=== PATIENT | female | born 1990 | race Caucasian/White ===

== ENCOUNTER 2016-06-17 19:22 | Emergency (ER) | payer OTHER ==
[2016-06-17 19:34] VITALS: RESP 18
--- NOTE | 2016-06-17 20:18 | ED ---
Abdominal Pain HPI - General Source: patient, RN notes reviewed Mode of arrival: ambulatory Limitations: no limitations <Luisa Granado - Last Filed: 06/17/16 20:24> <Gianluca Story - Last Filed: 06/17/16 21:48> - General Chief Complaint: Abdominal Pain Stated Complaint: 5 weeks pg/Abd Pain Time Seen by Provider: 06/17/16 19:35 - History of Present Illness Initial Comments: Patient is a 26-year-old female presents to the emergency room for evaluation of left lower quadrant pain. Patient states her last menstrual period was May 04. Patient states she took a urine test a few days ago and was positive. Patient states she thinks she is about 5 weeks . Patient denies following up with CLOSET BUILDER yet. Patient states she does not have an appointment with Dr. Jones until end of this month. Patient is a . 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 Patient states because of the left lower quadrant pain she wants to rule out ectopic . Patient states the pain began yesterday. Patient denies vaginal bleeding. Patient denies any abnormal vaginal discharge or discomfort. Patient denies any pain or burning during urination, trouble urinating or blood in urine. Patient denies history of STDs. Patient states she's been nauseous on and off for the past few weeks. Patient denies any current nausea. Patient denies fevers or chills. Patient denies chest pain or shortness of breath. Patient denies headache or dizziness. (Luisa Granado) - Related Data Home Medications Medication Instructions Recorded Confirmed Pnv with Ca,No.72/Iron/FA 1 tab PO DAILY 06/17/16 06/17/16 [ Plus Tablet] Allergies Allergy/AdvReac Type Severity Reaction Status Date / Time No Known Allergies Allergy Verified 06/17/16 20:13 Review of Systems ROS Other: All systems not noted in ROS Statement are negative. <Luisa Granado - Last Filed: 06/17/16 20:24> ROS Other: All systems not noted in ROS Statement are negative. <Gianluca Story - Last Filed: 06/17/16 21:48> ROS Statement: Those systems with pertinent positive or pertinent negative responses have been documented in the HPI. Past Medical History Past Medical History: No Reported History History of Any Multi-Drug Resistant Organisms: None Reported Past Surgical History: Section, Ear Surgery Additional Past Surgical History / Comment(s): D&C Past Psychological History: No Psychological Hx Reported Smoking Status: Former smoker Past Alcohol Use History: Rare Past Drug Use History: None Reported <Luisa Granado - Last Filed: 06/17/16 20:24> General Exam Limitations: no limitations General appearance: alert, in no apparent distress Head exam: Present: atraumatic, normocephalic, normal inspection Eye exam: Present: normal appearance ENT exam: Present: normal exam Neck exam: Present: normal inspection Respiratory exam: Present: normal lung sounds bilaterally. Absent: respiratory distress Cardiovascular Exam: Present: regular rate, normal rhythm, normal heart sounds GI/Abdominal exam: Present: soft, tenderness (Left lower quadrant), normal bowel sounds. Absent: distended, guarding, rebound, rigid External exam: Present: normal external exam Speculum exam: Present: normal speculum exam By manual exam: Present: adnexal tenderness (left) Extremities exam: Present: normal inspection Back exam: Present: normal inspection Neurological exam: Present: alert, oriented X3, CN II-XII intact, normal gait Psychiatric exam: Present: normal affect, normal mood Skin exam: Present: warm, dry, intact, normal color. Absent: rash <Luisa Granado - Last Filed: 06/17/16 20:24> <Gianluca Story - Last Filed: 06/17/16 21:48> - General Exam Comments Initial Comments: Sitting in exam room in no acute distress. (Luisa Granado) Medical Decision Making <Luisa Granado - Last Filed: 06/17/16 20:24> <Gianluca Story - Last Filed: 06/17/16 21:48> - Medical Decision Making Patient is a 26-year-old female presents to the emergency room for evaluation of left lower quadrant pain. Patient is . Patient is here to rule out ectopic since she has a past history. Case discussed and passed on to Dr. Story at 8:25 PM. (Luisa Granado) Labs revealed a beta hCG of 1389 and the pelvic ultrasound was as follows: Tiny cystic structure along the fundal endometrium may represent a very early gestational sac. As no urine sac or pole is seen at this time, differential considerations include early IUP, failed , and nonvisualized ectopic . Correlate with serial beta hCG and ultrasound follow-up to ensure the appearance of a normal IUP. Patient was reevaluated and had improvement in her pain. Patient was informed of these results and that she would be discharged with instructions to follow- up with her CLOSET BUILDER for serial beta hCGs and a repeat ultrasound at their discretion. She is further advised to return to this facility if her symptoms should worsen or persist including but not limited to: Vaginal bleeding, intractable nausea and vomiting, dysuria, fever/chills, intractable abdominal pain, chest pain, shortness of breath. The patient acknowledged an understanding of this information and agreed with this plan of care. She was offered to vitamins but stated she had already obtained them on her own. (Gianluca Story) - Lab Data Lab Results 06/17/16 06/17/16 06/17/16 Range/Units 19:50 19:50 20:00 HCG, Quant mIU/mL Urine Color Light Yellow Urine Appearance Clear (Clear) Urine pH 5.5 (5.0-8.0) Ur Specific [place] 1.014 (1.001-1.035) Urine Protein Negative (Negative) Urine Glucose (UA) Negative (Negative) Urine Ketones Negative (Negative) Urine Blood Negative (Negative) Urine Nitrate Negative (Negative) Urine Bilirubin Negative (Negative) Urine Urobilinogen <2.0 (<2.0) mg/dL Ur Leukocyte Esterase Negative (Negative) Urine HCG, Qual Detected (Not Detectd) Trichomonas Ag (Rapid) (Negative) Blood Type A Positive Blood Type Recheck No 06/17/16 06/17/16 Range/Units 20:00 20:00 HCG, Quant 1389.6 mIU/mL Urine Color Urine Appearance (Clear) Urine pH (5.0-8.0) Ur Specific [place] (1.001-1.035) Urine Protein (Negative) Urine Glucose (UA) (Negative) Urine Ketones (Negative) Urine Blood (Negative) Urine Nitrate (Negative) Urine Bilirubin (Negative) Urine Urobilinogen (<2.0) mg/dL Ur Leukocyte Esterase (Negative) Urine HCG, Qual (Not Detectd) Trichomonas Ag (Rapid) Negative (Negative) Blood Type Blood Type Recheck Disposition <Luisa Granado - Last Filed: 06/17/16 20:24> Time of Disposition: 21:48 <Gianluca Story - Last Filed: 06/17/16 21:48> Clinical Impression: at early stage, Abdominal pain Disposition: HOME SELF-CARE Condition: Stable Instructions: Abdominal Pain in (ED)
[2016-06-17 20:21] LABS: Appearance,Urine Clear (Clear); Bilirubin,Urine Negative (Negative); Glucose,Urine (UA) Negative (Negative); Ketones,Urine Negative (Negative); Leukocyte Esterase,Urine Negative (Negative); Nitrite,Urine Negative (Negative); PH, Urine 5.5 (5.0-8.0); Protein,Urine Negative (Negative); Specific Gravity,Urine 1.014 (1.001-1.035); UA Billing (MACRO vs. MICRO) CHEM; Urobilinogen,Urine <2.0 mg/dL (<2.0)
--- NOTE | 2016-06-17 21:18 | US ---
EXAMINATION TYPE: US OB <=14 wks transvag DATE OF EXAM: 06/17/2016 8:58 PM COMPARISON: NONE CLINICAL HISTORY: 26-year-old female with LLQ pain, patient states history of previous ectopic left side Date of LMP: 05/11/2016 Beta HcG (if available): Not available EXAM PERFORMED: Transvaginal (TV) and Transabdominal (TA) FINDINGS: EXAM MEASUREMENTS: GESTATIONAL AGE / DATING Physician Established: Not yet established Dates by LMP: (5 weeks/2 days) EDC: 02/15/2017 Dates by First Scan: No prior Dates by Current Scan: Too early to calculate MATERNAL ANATOMY Uterus: Retroverted measuring 8.8 x 5.1 x 5.5 cm Right Ovary: 3.8 x 2.2 x 2.6 cm Left Ovary: 2.1 x 1.1 x 2.2 cm Post CDS / Adnexa: wnl Presence of free fluid: No Presence of corpus luteal cyst: Right Ovary= 2.4 x 1.8 x 2.1 cm Presence of subchorionic bleed: No GESTATION / SURVEY Tiny 4 mm cystic collection along the fundal endometrium. If this represents an early gestational sac , it is too early to calculate age. No yolk sac seen. IMPRESSION: Tiny cystic structure along the fundal endometrium may represent a very early gestational sac. As no yolk sac or pole is seen at this time, differential considerations include early intrauterine p regnancy, failed , and nonvisualized ectopic . Correlate with serial beta hCG and u ltrasound follow-up to ensure the appearance of a normal intrauterine .
[2016-06-17 21:57] VITALS: BP 112/61; PULSE 82; TEMP 98.5
== END 2016-06-17 21:56 | disposition home or self-care (01) ==
LOC: EC 19:22
DX: O26.891 Other specified pregnancy related conditions, first trimester (principal); R10.32 Left lower quadrant pain; Z3A.00 Weeks of gestation of pregnancy not specified; Z87.891 Personal history of nicotine dependence
CPT/HCPCS: 36415; 76801; 76817; 81003; 81025; 84702; 86900; 86901; 87070; 87205; 87491; 87591; 87808; 99284

== ENCOUNTER → 2016-06-19 | Outpatient (CLI) | payer OTHER | END | disposition home or self-care (01) | LOC: LABWHC1 16:11 | PROVIDERS: ATTEND Obstetrics & Gynecology | DX: Z34.80 Encounter for supervision of other normal pregnancy, unspecified trimester (principal); Z3A.00 Weeks of gestation of pregnancy not specified | CPT/HCPCS: 36415; 84702 ==

== ENCOUNTER → 2016-07-14 | Outpatient (CLI) | payer OTHER ==
[2016-07-14 15:50] LABS: CH 33.8; CHCM 34.8; HCT 35.1 % (34.0-46.0); HDW 2.82; HGB 12.1 gm/dL (11.4-16.0); MCH 33.6 pg (25.0-35.0); MCHC 34.4 g/dL (31.0-37.0); MCV 97.4 fL (80.0-100.0); Mean Platelet Volume 6.6; RDW 13.4 % (11.5-15.5); WBC 6.4 k/uL (3.8-10.6)
[2016-07-14 16:04] LABS: Glucose 99 mg/dL (74-99); Non-African American GFR(MDRD) >60 (>60 ml/min/1.73 sqM)
[2016-07-14 16:34] LABS: Hepatitis B Surface Ag Index 0.06
[2016-07-15 05:24] LABS: Toxoplasma Antibody (IgG) 54.9 IU/mL (<7.2)
[2016-07-15 08:08] LABS: HIV-1/HIV-2 Ab Screen NONREAC (NON REAC)
--- NOTE | 2016-07-15 09:24 | US ---
EXAMINATION TYPE: US OB <= 14 wk fetus DATE OF EXAM: 07/14/2016 4:03 PM COMPARISON: NONE CLINICAL HISTORY: [id number] Confirm Dates. EXAM PERFORMED: Transvaginal (TV) and Transabdominal (TA) EXAM MEASUREMENTS: GESTATIONAL AGE / DATING Physician Established: not yet established Dates by LMP: ( 9 weeks/1 days) EDC: 02/15/2017 Dates by First Scan: not dated Today's scan: not dated by today's scan MATERNAL ANATOMY Uterus: 9.3 x 6.4 x 6.4 Right Ovary: 2.7 x 1.9 x 2.1cm Left Ovary: not visualized Post CDS / Adnexa: wnl Presence of free fluid: small amount of ff anterior to uterus Presence of corpus luteal cyst: 1.5 x 1.0 x 1.0cm Presence of subchorionic bleed: multiple small anechoic area, largest measuring 0.8 x 0.2 x 0.9cm GESTATION / SURVEY CRL: not seen MSD: 1.9 (7 weeks/0 days) Yolk Sac (normal less than 6mm): not seen Date of LMP: 05/11/17 Beta HcG (if available): not available TECHNOLOGIST IMPRESSION: Possible blighted ovum but can rule out early . Office called spoke with Maryam gave her a preliminary, patient instructed to call office on Sunday. Liver appears to be an intrauterine gestational sac. However, this is irregular and no yolk sac is id entified. No pole is evident. There are several hypoechoic areas adjacent to the gestational sa c could represent small subchorionic hemorrhages. No yolk sac no pole and no cardiac activity are evident. This could not be measured for gestati onal age. IMPRESSION: 1. An intrauterine gestation is not identified. Blighted ovum an ectopic should be consider ed. Early gestational age is not excluded correlation with beta-hCG and follow-up can also be perform ed.
== END | disposition home or self-care (01) ==
LOC: RADUSWWP 15:15
PROVIDERS: ATTEND Obstetrics & Gynecology
DX: Z36 Encounter for antenatal screening of mother (principal); O26.811 Pregnancy related exhaustion and fatigue, first trimester
CPT/HCPCS: 36415; 76801; 76817; 82565; 82947; 85027; 86762; 86777; 86778; 86780; 86850; 86900; 86901; 87340; 87389

== ENCOUNTER → 2016-07-17 | Outpatient (CLI) | payer OTHER | END | disposition home or self-care (01) | LOC: LABWHC1 10:32 | PROVIDERS: ATTEND Obstetrics & Gynecology | DX: Z34.80 Encounter for supervision of other normal pregnancy, unspecified trimester (principal); Z3A.00 Weeks of gestation of pregnancy not specified | CPT/HCPCS: 36415; 84702 ==

== ENCOUNTER 2016-07-18 05:58 | Day surgery (SDC) | payer OTHER ==
[2016-07-17 14:52] VITALS: BMI 29.2
--- NOTE | 2016-07-17 16:34 | P.HPOB ---
History of Present Illness H&P Date: 07/17/16 Chief Complaint: Missed . This patient is a pleasant 26 yr G4PP1 who presents for suction D&C due to missed at approximately 6 weeks size. Patient has had serial ultrasounds showing an empty uterine sac and BHCG 54,000. She began spotting the end of last week. I discussed expectant management vs. D&C and patient is requesting D&C for treatment. Review of Systems Constitutional: Denies chills, Denies fever Ears, nose, mouth and throat: Denies headache, Denies sore throat Cardiovascular: Denies chest pain, Denies shortness of breath Respiratory: Denies cough Gastrointestinal: Denies abdominal pain, Denies diarrhea, Denies nausea, Denies vomiting Genitourinary: Reports as per HPI Menstruation: Reports as per HPI Musculoskeletal: Denies myalgias Integumentary: Denies pruritus, Denies rash Neurological: Denies numbness, Denies weakness Psychiatric: Denies anxiety, Denies depression Endocrine: Denies fatigue, Denies weight change Past Medical History Past Medical History: No Reported History Additional Past Medical History / Comment(s): CURRENTLY HAVING SOME CRAMPING, NO SPOTTING CURRENTLY, BUT DID HAVE SOME A WEEK AGO History of Any Multi-Drug Resistant Organisms: None Reported Past Surgical History: Section, Ear Surgery Additional Past Surgical History / Comment(s): D&C X2 Past Anesthesia/Blood Transfusion Reactions: No Reported Reaction Past Psychological History: No Psychological Hx Reported Smoking Status: Former smoker Past Alcohol Use History: None Reported Additional Past Alcohol Use History / Comment(s): QUIT A FEW MONTHS AGO, SMOKED COUPLE CIGARETTES OCCASIONALLY FROM AGE 13 Past Drug Use History: None Reported - Past Family History Mother Family Medical History: No Reported History Medications and Allergies Home Medications Medication Instructions Recorded Confirmed Type No Known Home Medications [No 07/17/16 07/17/16 History Known Home Medications] Allergies Allergy/AdvReac Type Severity Reaction Status Date / Time No Known Allergies Allergy Verified 07/17/16 14:49 Exam - Vital Signs Vital signs: Intake and Output 07/17/16 07/17/16 07/17/16 06:59 14:59 22:59 Other: Weight 77.111 kg Patient Weight 07/18/16 06:59 Weight 77.111 kg - OBG Physical Exam Abdomen: bowel sounds normal, no diffuse tenderness, no bruit present, no guarding noted, no hepatomegaly, no splenomegaly, no mass Vulva: both: normal Vagina: normal moisture, no discharge Cervix: no lesion, no discharge Uterus: enlarged Results Ultrasound shows a 1.9 cm intrauterine sac without pole/yolk sac. Small sub-chorionic hemorrhages are seen. [facility] [id number]. Assessment and Plan (1) Missed Narrative/Plan: This is a pleasant 26yr female ~5-6 weeks estimated gestational age with missed who requests a D&C for treatment. Plan is suction D&C. I have discussed the risks of the this procedure: infection, bleeding, possible uterine perforation. All of the patients questions were answered and a written consent obtained. Status: Chronic
[~2016-07-18 05:58] MED LIST: DEXAMETHASONE SOD PHOSPHATE 10 MG/ML 1 ML VIAL IV ONE; HYDROmorphone 1 MG/ML 1 ML SYRINGE IVP PRN; LACTATED RINGERS 1,000 ML IV SCH; MIDAZOLAM 2 MG/2 ML VIAL IV PRN; ONDANSETRON 4 MG/2 ML VIAL IVP ONE; Pre Op ABX Message 1 EACH MISC MISCELLANE ONE; SCOPOLAMINE 1.5MG/72HR PATCH TRANSDERM ONE
[2016-07-18 06:15] VITALS: RESP 16
[2016-07-18] MEDS ORDERED: LIDOCAINE 1% 20 ML VIAL (10MG/ML) FOR IV START INTRADERMA ONE (06:21)
[2016-07-18] MEDS ORDERED: fentaNYL (PF) 50 MCG/ML 2 ML AMP ONE (06:53)
[2016-07-18] MEDS ORDERED: MIDAZOLAM 2 MG/2 ML VIAL ONE (06:53)
[2016-07-18] MEDS ORDERED: KETOROLAC 30 MG/ML 1 ML VIAL ONE (06:53)
[2016-07-18] MEDS ORDERED: LIDOCAINE 1% INJ 10MG/ML (20 ML MDV) ONE (06:53)
[2016-07-18] MEDS ORDERED: PROPOFOL 10 MG/ML 20 ML VIAL IV ONE (06:53)
--- NOTE | 2016-07-18 07:17 | P.OP ---
Date of Procedure: 07/18/16 Preoperative Diagnosis: Missed 6 weeks Postoperative Diagnosis: Same Procedure(s) Performed: Suction D&C Anesthesia: MAC Surgeon: David Quintanilla Estimated Blood Loss (ml): 100 Urine output (ml): 10 Pathology: other (Uterine contents) Condition: stable Disposition: PACU Indications for Procedure: Please see dictated H&P for intimate details of this patient's admission. Brief summary is a pleasant 26-year-old multigravida patient who is approximately 6 weeks' gestation with a missed . Patient was counseled as to options as far as expectant management versus a D&C. Patient is requesting D&C at this time. Patient understands this surgery and risks including risks of infection, bleeding, possible uterine perforation. All the patient's questions are answered written consent is obtained. Operative Findings: Uterine contents were consistent with degenerated products of conception. Description of Procedure: This patient is taken to the operating room where she is laid in the supine position. She subsequently undergoes general mask anesthesia without incident. An adequate level of anesthesia she's placed in dorsal lithotomy position. She has a vaginal perineal prep and drape. Examination under anesthesia shows a mid to anteverted uterus approximately 6-7 weeks size. I placed a weighted speculum posterior vagina. Bladder is drained for about 10 mL of clear urine. I then place an Allis clamp and the anterior lip of the cervix. Cervix is gently dilated to allow a 9 curved suction curette easily and uterine cavity suction is applied and generous amount of tissue is removed. Multiple passes are done until no further tissue was noted. A gentle but thorough curettage of all 4 quadrants is done again no further tissue was noted. A final pass of the suction curet is done. At this time the bleeding subsides. Procedure is terminated. Allis clamps removed weighted speculum removed. All counts are correct 3. There are no complications. Patient is awakened from anesthesia and taken to the recovery room in satisfactory condition.
[2016-07-18 07:27] VITALS: TEMP 98
[2016-07-18] MEDS ORDERED: LACTATED RINGERS 1,000 ML IV ONE (08:46)
[2016-07-18 09:08] VITALS: BP 108/66; PULSE 78
== END 2016-07-18 09:42 | disposition home or self-care (01) ==
LOC: OR 05:58
PROVIDERS: ATTEND Obstetrics & Gynecology
DX: O02.1 Missed abortion (principal); Z87.891 Personal history of nicotine dependence; Z3A.01 Less than 8 weeks gestation of pregnancy
CPT/HCPCS: 59820; J2250; J1100; J2405; J2001; J3010; J1885; J2704; 88305

== ENCOUNTER → 2016-08-17 | Outpatient (CLI) | payer OTHER | END | disposition home or self-care (01) | LOC: LABWHC1 15:00 | PROVIDERS: ATTEND Obstetrics & Gynecology | DX: O02.0 Blighted ovum and nonhydatidiform mole (principal) | CPT/HCPCS: 36415; 84702 ==

== ENCOUNTER → 2016-09-28 | Outpatient (CLI) | payer OTHER | END | disposition home or self-care (01) | LOC: LABWHC1 14:14 | PROVIDERS: ATTEND Obstetrics & Gynecology | DX: O02.0 Blighted ovum and nonhydatidiform mole (principal) | CPT/HCPCS: 36415; 84702 ==

== ENCOUNTER → 2016-11-17 | Outpatient (CLI) | payer OTHER | END | disposition home or self-care (01) | LOC: LABWHC1 09:45 | PROVIDERS: ATTEND Obstetrics & Gynecology | DX: O02.0 Blighted ovum and nonhydatidiform mole (principal) | CPT/HCPCS: 36415; 84702 ==

== ENCOUNTER → 2017-03-26 | Outpatient (CLI) | payer OTHER | END | disposition home or self-care (01) | LOC: LABWHC1 10:27 | PROVIDERS: ATTEND Obstetrics & Gynecology | DX: O02.0 Blighted ovum and nonhydatidiform mole (principal) | CPT/HCPCS: 36415; 84702 ==

== ENCOUNTER → 2017-08-22 | Outpatient (CLI) | payer OTHER | END | disposition home or self-care (01) | LOC: LABWHC1 10:38 | PROVIDERS: ATTEND Obstetrics & Gynecology | DX: Z34.80 Encounter for supervision of other normal pregnancy, unspecified trimester (principal); Z3A.00 Weeks of gestation of pregnancy not specified | CPT/HCPCS: 36415; 84702 ==

== ENCOUNTER 2017-08-29 20:55 | Emergency (ER) | payer OTHER ==
[2017-08-29] MEDS ORDERED: SODIUM CHLORIDE 0.9% 1,000 ML IV STA (21:22)
[2017-08-29 21:48] LABS: Basophils % (A) 0 %; Eosinophils # (A) 0.1 k/uL (0-0.7); Eosinophils % (A) 2 %; HCT 35.7 % (34.0-46.0); HGB 12.4 gm/dL (11.4-16.0); Lymphocytes # (A) 3.2 k/uL (1.0-4.8); Lymphocytes % (A) 42 %; MCH 31.9 pg (25.0-35.0); MCHC 34.6 g/dL (31.0-37.0); MCV 92.4 fL (80.0-100.0); Monocytes # (A) 0.4 k/uL (0-1.0); Monocytes % (A) 5 %; Neutrophils # (A) 3.8 k/uL (1.3-7.7); Neutrophils % (A) 50 %; Platelet Count 205 k/uL (150-450); RBC 3.87 m/uL (3.80-5.40); RDW 12.5 % (11.5-15.5); WBC 7.6 k/uL (3.8-10.6)
[2017-08-29 22:02] LABS: ALT 26 U/L (9-52); AST 16 U/L (14-36); Albumin 4.1 g/dL (3.5-5.0); Alkaline Phosphatase 68 U/L (38-126); Anion Gap 12 mmol/L; Blood Urea Nitrogen 19 mg/dL (7-17); Calcium 9.3 mg/dL (8.4-10.2); Carbon Dioxide 25 mmol/L (22-30); Chloride 105 mmol/L (98-107); Glucose 85 mg/dL (74-99); Potassium 4.1 mmol/L (3.5-5.1); Sodium 142 mmol/L (137-145); Total Bilirubin 0.2 mg/dL (0.2-1.3); Total Protein 6.8 g/dL (6.3-8.2)
--- NOTE | 2017-08-29 22:14 | ED ---
Abdominal Pain HPI - General Chief Complaint: Abdominal Pain Stated Complaint: rt side pain/miscarriage 08/21/17 Time Seen by Provider: 08/29/17 21:08 Source: patient Mode of arrival: ambulatory Limitations: no limitations - History of Present Illness Initial Comments: 27-year-old female patient presents to the emergency department today with complaints of right lower quadrant abdominal pain. Patient states that she started to have vaginal bleeding approximately one week ago. Patient is a . The patient states that she is approximately 5 weeks along when she started to have the vaginal bleeding. Patient states that she has had numerous miscarriages, one ectopic , and a molar in her past. Patient states that this seems like she was having a miscarriage. She states that she did have hCG level drawn by her appeals court associate justice. States it was very low and a confirmed her diagnosis of probable miscarriage. Patient states that she has been having persistent right lower quadrant abdominal pain since the bleeding began. Patient states that her pain ranges between a 4 and 6. States it is a sharp pain and does radiate into her back. She states that the vaginal bleeding did lessen yesterday. Denies any vaginal bleeding today. She denies any hematuria, dysuria, urinary frequency, urinary urgency. Denies any nausea, vomiting, or diarrhea. Denies any fevers or chills with this.Patient denies any recent rash, shortness breath, chest pain, back pain, numbness, tingling, dizziness, weakness, hematuria, dysuria, urinary urgency, urinary frequency, headache, visual changes, or any other complaints. - Related Data Home Medications Medication Instructions Recorded Confirmed No Known Home Medications [No 08/29/17 08/29/17 Known Home Medications] Allergies Allergy/AdvReac Type Severity Reaction Status Date / Time No Known Allergies Allergy Verified 08/29/17 21:25 Review of Systems ROS Statement: Those systems with pertinent positive or pertinent negative responses have been documented in the HPI. ROS Other: All systems not noted in ROS Statement are negative. Past Medical History Past Medical History: No Reported History Additional Past Medical History / Comment(s): CURRENTLY HAVING SOME CRAMPING, NO SPOTTING CURRENTLY, BUT DID HAVE SOME A WEEK AGO History of Any Multi-Drug Resistant Organisms: None Reported Past Surgical History: Section, Ear Surgery Additional Past Surgical History / Comment(s): D&C X2 Past Anesthesia/Blood Transfusion Reactions: No Reported Reaction Past Psychological History: No Psychological Hx Reported Smoking Status: Current every day smoker Past Alcohol Use History: None Reported Past Drug Use History: None Reported - Past Family History Mother Family Medical History: No Reported History General Exam Limitations: no limitations General appearance: alert, in no apparent distress, other (This is a well- developed, well-nourished adult female patient in no acute distress. Vital signs upon presentation are temperature 98.2F, pulse 90, respirations 16, blood pressure 118/69, pulse ox 100% on room air.) Eye exam: Present: normal appearance, PERRL, EOMI. Absent: scleral icterus, conjunctival injection, periorbital swelling ENT exam: Present: normal exam, normal oropharynx, mucous membranes moist Respiratory exam: Present: normal lung sounds bilaterally. Absent: respiratory distress, wheezes, rales, rhonchi, stridor Cardiovascular Exam: Present: regular rate, normal rhythm, normal heart sounds. Absent: systolic murmur, diastolic murmur, rubs, gallop, clicks GI/Abdominal exam: Present: soft, tenderness (Suprapubic abdominal tenderness), normal bowel sounds. Absent: distended, guarding, rebound, rigid Neurological exam: Present: alert, oriented X3, CN II-XII intact Psychiatric exam: Present: normal affect, normal mood Skin exam: Present: warm, dry, intact, normal color. Absent: rash Course Vital Signs 08/29/17 08/29/17 20:58 23:21 Temperature 98.2 F 98.6 F Pulse Rate 90 80 Respiratory 16 18 Rate Blood Pressure 118/69 123/60 O2 Sat by Pulse 100 98 Oximetry Medical Decision Making - Medical Decision Making 27-year-old female patient presented to the emergency department today for complaints of persistent right lower quadrant abdominal pain after experiencing a miscarriage approximately one week ago. Physical examination is unremarkable. Patient does exhibit some mild suprapubic tenderness. Labs reviewed and did reveal a negative hCG level. Urinalysis was negative for any acute infection. Transvaginal ultrasound was obtained and showed no evidence of ectopic , ovarian torsion, or retained products. I did discuss findings with the patient. We discussed use of ibuprofen for her pain. She is instructed to follow-up with PERFORMANCE TEST ENGINEER as soon as possible. She is instructed to return here immediately for any new, worsening, or concerning symptoms. She verbalizes understanding and agrees with this plan. - Lab Data Result diagrams: 08/29/17 21:34 08/29/17 21:34 Lab Results 08/29/17 08/29/17 08/29/17 Range/Units 21:34 21:34 21:34 WBC 7.6 (3.8-10.6) k/uL RBC 3.87 (3.80-5.40) m/uL Hgb 12.4 (11.4-16.0) gm/dL Hct 35.7 (34.0-46.0) % MCV 92.4 (80.0-100.0) fL MCH 31.9 (25.0-35.0) pg MCHC 34.6 (31.0-37.0) g/dL RDW 12.5 (11.5-15.5) % Plt Count 205 (150-450) k/uL Neutrophils % 50 % Lymphocytes % 42 % Monocytes % 5 % Eosinophils % 2 % Basophils % 0 % Neutrophils # 3.8 (1.3-7.7) k/uL Lymphocytes # 3.2 (1.0-4.8) k/uL Monocytes # 0.4 (0-1.0) k/uL Eosinophils # 0.1 (0-0.7) k/uL Basophils # 0.0 (0-0.2) k/uL Sodium 142 (137-145) mmol/L Potassium 4.1 (3.5-5.1) mmol/L Chloride 105 (98-107) mmol/L Carbon Dioxide 25 (22-30) mmol/L Anion Gap 12 mmol/L BUN 19 H (7-17) mg/dL Creatinine 0.88 (0.52-1.04) mg/dL Est GFR (CKD-EPI)AfAm >90 (>60 ml/min/1.73 sqM) Est GFR (CKD-EPI)NonAf 90 (>60 ml/min/1.73 sqM) Glucose 85 (74-99) mg/dL Calcium 9.3 (8.4-10.2) mg/dL Total Bilirubin 0.2 (0.2-1.3) mg/dL AST 16 (14-36) U/L ALT 26 (9-52) U/L Alkaline Phosphatase 68 (38-126) U/L Total Protein 6.8 (6.3-8.2) g/dL Albumin 4.1 (3.5-5.0) g/dL HCG, Quant <2.4 mIU/mL Urine Color Urine Appearance (Clear) Urine pH (5.0-8.0) Ur Specific [place] (1.001-1.035) Urine Protein (Negative) Urine Glucose (UA) (Negative) Urine Ketones (Negative) Urine Blood (Negative) Urine Nitrite (Negative) Urine Bilirubin (Negative) Urine Urobilinogen (<2.0) mg/dL Ur Leukocyte Esterase (Negative) Blood Type A Positive Blood Type Recheck No 08/29/17 Range/Units 22:56 WBC (3.8-10.6) k/uL RBC (3.80-5.40) m/uL Hgb (11.4-16.0) gm/dL Hct (34.0-46.0) % MCV (80.0-100.0) fL MCH (25.0-35.0) pg MCHC (31.0-37.0) g/dL RDW (11.5-15.5) % Plt Count (150-450) k/uL Neutrophils % % Lymphocytes % % Monocytes % % Eosinophils % % Basophils % % Neutrophils # (1.3-7.7) k/uL Lymphocytes # (1.0-4.8) k/uL Monocytes # (0-1.0) k/uL Eosinophils # (0-0.7) k/uL Basophils # (0-0.2) k/uL Sodium (137-145) mmol/L Potassium (3.5-5.1) mmol/L Chloride (98-107) mmol/L Carbon Dioxide (22-30) mmol/L Anion Gap mmol/L BUN (7-17) mg/dL Creatinine (0.52-1.04) mg/dL Est GFR (CKD-EPI)AfAm (>60 ml/min/1.73 sqM) Est GFR (CKD-EPI)NonAf (>60 ml/min/1.73 sqM) Glucose (74-99) mg/dL Calcium (8.4-10.2) mg/dL Total Bilirubin (0.2-1.3) mg/dL AST (14-36) U/L ALT (9-52) U/L Alkaline Phosphatase (38-126) U/L Total Protein (6.3-8.2) g/dL Albumin (3.5-5.0) g/dL HCG, Quant mIU/mL Urine Color Colorless Urine Appearance Clear (Clear) Urine pH 6.0 (5.0-8.0) Ur Specific [place] 1.006 (1.001-1.035) Urine Protein Negative (Negative) Urine Glucose (UA) Negative (Negative) Urine Ketones Negative (Negative) Urine Blood Negative (Negative) Urine Nitrite Negative (Negative) Urine Bilirubin Negative (Negative) Urine Urobilinogen <2.0 (<2.0) mg/dL Ur Leukocyte Esterase Negative (Negative) Blood Type Blood Type Recheck - Radiology Data Radiology results: report reviewed, image reviewed Transvaginal ultrasound of the pelvis was obtained. Report was reviewed in its entirety. Impression by Dr. Spivey shows no evidence of ovarian torsion. Normal uterus and endometrium. No evidence of retained products. Disposition Clinical Impression: Miscarriage, Pelvic pain Disposition: HOME SELF-CARE Condition: Good Instructions: Miscarriage (ED), Pelvic Pain (ED) Additional Instructions: Follow-up with PERFORMANCE TEST ENGINEER as soon as possible. Continue taking ibuprofen for pain control. Return here immediately for any new, worsening, or concerning symptoms. Referrals: None,Stated [Primary Care Provider] - 1-2 days Time of Disposition: 23:15
[2017-08-29 22:17] LABS: HCG,Quantitative Serum <2.4 mIU/mL
--- NOTE | 2017-08-29 22:37 | US ---
EXAMINATION TYPE: US transvaginal DATE OF EXAM: 08/29/2017 COMPARISON: NONE CLINICAL HISTORY: Pain. Right side pain miscarriage 08/21/2017 TECHNIQUE: Transvaginal (TV). EXAM MEASUREMENTS: Uterus: 7.3 x 4.6 x 5.3 cm Endometrial Stripe: 0.4m Right Ovary: 3.0 x 1.7 x 1.7 cm Left Ovary: 3.8 x 1.4 x 1.5 cm 1. Uterus: Retroverted wnl 2. Endometrium: wnl 3. Right Ovary: Follicles visualized. 4. Left Ovary: Follicles visualized. Spectral, color and waveform doppler imaging shows good arterial and venous flow within the ovaries ; there is no evidence for ovarian torsion. 5. Bilateral Adnexa: wnl 6. Posterior cul-de-sac: wnl Bilateral good color doppler within the ovaries. IMPRESSION: No evidence of ovarian torsion. Normal uterus and endometrium. No evidence of retained pr oducts.
[2017-08-29 23:05] LABS: Appearance,Urine Clear (Clear); Bilirubin,Urine Negative (Negative); Blood,Urine Negative (Negative); Color,Urine Colorless; Glucose,Urine (UA) Negative (Negative); Ketones,Urine Negative (Negative); Leukocyte Esterase,Urine Negative (Negative); Nitrite,Urine Negative (Negative); Protein,Urine Negative (Negative); Specific Gravity,Urine 1.006 (1.001-1.035); Urobilinogen,Urine <2.0 mg/dL (<2.0)
[2017-08-29 23:23] VITALS: BP 123/60; PULSE 80; RESP 18; TEMP 98.6
== END 2017-08-29 23:23 | disposition home or self-care (01) ==
LOC: EC 20:55
DX: R10.2 Pelvic and perineal pain (principal); F17.200 Nicotine dependence, unspecified, uncomplicated; Z87.59 Personal history of other complications of pregnancy, childbirth and the puerperium
CPT/HCPCS: 36415; 76830; 80053; 81003; 84702; 85025; 86900; 86901; 93975; 96360; 96361; 99284

== ENCOUNTER → 2017-11-20 | Outpatient (CLI) | payer OTHER | END | disposition home or self-care (01) | LOC: LABWHC1 07:17 | PROVIDERS: ATTEND Obstetrics & Gynecology | DX: Z34.80 Encounter for supervision of other normal pregnancy, unspecified trimester (principal); Z3A.00 Weeks of gestation of pregnancy not specified | CPT/HCPCS: 36415; 84702 ==

== ENCOUNTER → 2017-11-22 | Outpatient (CLI) | payer OTHER | END | disposition home or self-care (01) | LOC: LABWHC1 11:22 | PROVIDERS: ATTEND Obstetrics & Gynecology | DX: Z34.80 Encounter for supervision of other normal pregnancy, unspecified trimester (principal) | CPT/HCPCS: 36415; 84702 ==

== ENCOUNTER → 2017-12-17 | Outpatient (CLI) | payer OTHER ==
--- NOTE | 2017-12-17 14:03 | US ---
EXAMINATION TYPE: Transabdominal DATE OF EXAM: 09/04/17 COMPARISON: NONE CLINICAL HISTORY: 27-year-old female Z36 CONFIRM DATES. EXAM PERFORMED: TA. TV SUPPLEMENTED TO BETTER VISUALIZE THE POLE. FINDINGS: EXAM MEASUREMENTS: GESTATIONAL AGE / DATING Physician Established: EDC: unknown Dates by LMP: (8 weeks/2 days) EDC: 07/27/2018 Dates by First Scan: No previous this is first scan Dates by Current Scan for: ( 7 weeks/3 days +/- 4 days) EDC: 08/02 2018 MATERNAL ANATOMY Uterus: 8.1 x 6.4 x 7.0 cm Right Ovary: 3.0 x 2.0 x 2.0 cm Left Ovary: 2.1 x 2.2 x 1.4 cm Post CDS / Adnexa: wnl Presence of free fluid: no Presence of corpus luteal cyst: no Presence of subchorionic bleed: no GESTATION / SURVEY CRL: 1.5 (7 weeks/6 days) MSD: 2.3 ( 7 weeks/0 days) Yolk Sac (normal less than 6mm): 5 Heart Rate: 159 bpm Rhythm: Normal IUP: Viable IUP Date of LMP: Beta HcG (if available): na IMPRESSION: 1. Single live intrauterine with estimated gestational age of 8 weeks 2 days by LMP. Curren t ultrasound biometry is slightly smaller and discordant (7 weeks 3 days). 2. Complete survey recommended at 18-20 weeks.
== END | disposition home or self-care (01) ==
LOC: RADUSWWP 10:43
PROVIDERS: ATTEND Obstetrics & Gynecology
DX: Z36.89 Encounter for other specified antenatal screening (principal)
CPT/HCPCS: 76801; 76817

== ENCOUNTER 2018-04-08 14:25 | Outpatient (CLI) | payer OTHER ==
[2018-04-08 15:11] LABS: Appearance,Urine Clear (Clear); Bilirubin,Urine Negative (Negative); Blood,Urine Negative (Negative); Color,Urine Yellow; Glucose,Urine (UA) Negative (Negative); Ketones,Urine Negative (Negative); Leukocyte Esterase,Urine Negative (Negative); Nitrite,Urine Negative (Negative); PH, Urine 5.5 (5.0-8.0); Protein,Urine Negative (Negative); Specific Gravity,Urine 1.019 (1.001-1.035)
[2018-04-08 18:32] VITALS: BP 96/55; PULSE 89; RESP 16; TEMP 98.4
--- NOTE | 2018-04-08 19:15 | P.MSEPDOC ---
Presenting Problems - Arrival Data Date of Arrival on Unit: 04/08/18 Time of Arrival on Unit: 14:30 Mode of Transport: Ambulatory - Complaint OB-Reason for Admission/Chief Complaint: Pain Comment: pt here for back pain, pelvic and vaginal pressure going on since yesterday. Constant pain. supra pubic pressure frequent urination with increased pressure at end. void. urine specmien obtained. Pt states she is not currently having the pain and pressure that prompted her to come in. Medical History - Information : 10 Para: 3 Term: 3 : 0 Abortions: Spontaneous or Elective: 3 Number of Living Children: 3 - Gestational Age Gestational Age by DANE (wks/days): 23 Weeks and 3 Days - History Comment: Pt had 2 vag deliveries. last baby was c/s for breech. plan is to this. baby. Review of Systems - Review of Systems Constitutional: No problems Breast: No problems ENT: No problems Cardiovascular: No problems Respiratory: No problems Gastrointestinal: No problems Genitourinary: Increased frequency Musculoskeletal: No problems Neurological: No problems Skin: No problems Vital Signs - Temperature Temperature: 98.4 F Temperature Source: Oral - Pulse Right Pulse Rate: 89 Pulse Assessment Method: Automatic Cuff - Respirations Respiratory Rate: 16 Oxygen Delivery Method: Room Air O2 Sat by Pulse Oximetry: 98 - Blood Pressure Right Arm Blood Pressure: 96/55 Blood Pressure Mean: 68 Blood Pressure Source: Automatic Cuff Medical Screen Scoring (Pre) - Cervical Exam Dilation: 0 cm = 0 Effacement: Exam Deferred - Uterine Contractions Frequency: N/A Duration: N/A Intensity: N/A - Maternal Vital Signs Maternal Temperature: N/A Maternal Blood Pressure: N/A Signs of Preeclampsia: N/A Maternal Respirations: N/A - Pain Assessment Pain Scale Used: Numeric (1 - 10) Pain Intensity: 0 - Assessment Baseline FHR: 140 -23 weeks Position: N/A Station: N/A - Total Score Total Score (Pre): 0 - Level of Risk Level of Risk: N/A Physician Notification (Pre) - Physician Notified Physician Notified Date: 04/08/18 Physician Notified Time: 16:40 Physician/Practitioner Notifed:: Dr Quintanilla New Order Received: Yes - Notification Comment Comment: 1640 Dr Quintanilla updated. requests vag exam and if closed may discharge. 1730. Dr Quintanilla in department. notified cervical exam closed. cervix soft and. anterior. order for discharge and to discard ffn specimen Disposition - Disposition OB Disposition: Discharge to home Discharge Date: 04/08/18 Discharge Time: 17:30 I agree with the RN Medical Screening Exam: Yes Risk & Benefit of care provided described in d/c instruction: Yes Diagnosis: FALSE LABOR BEFORE 37 COMPLETED WEEKS OF GEST, THIRD TRI
== END 2018-04-08 17:30 | disposition home or self-care (01) ==
LOC: FBPOP 14:25
PROVIDERS: ATTEND Obstetrics & Gynecology
DX: O47.03 False labor before 37 completed weeks of gestation, third trimester (principal); Z3A.23 23 weeks gestation of pregnancy
CPT/HCPCS: 81003; G0463; 99213

== ENCOUNTER 2018-07-25 17:57 | Outpatient (CLI) | payer OTHER ==
[2018-07-25 19:02] LABS: Basophils % (A) 0 %; Eosinophils % (A) 0 %; HCT 28.5 % (34.0-46.0); HGB 9.4 gm/dL (11.4-16.0); Lymphocytes # (A) 1.8 k/uL (1.0-4.8); Lymphocytes % (A) 26 %; MCHC 32.9 g/dL (31.0-37.0); MCV 100.5 fL (80.0-100.0); Macrocytosis Slight; Mean Platelet Volume 8.5; Monocytes # (A) 0.4 k/uL (0-1.0); Monocytes % (A) 5 %; Neutrophils # (A) 4.8 k/uL (1.3-7.7); Neutrophils % (A) 67 %; Platelet Count 154 k/uL (150-450); RBC 2.84 m/uL (3.80-5.40); RDW 13.6 % (11.5-15.5); WBC 7.1 k/uL (3.8-10.6)
[2018-07-25 19:16] LABS: ALT 37 U/L (9-52); AST 25 U/L (14-36); Blood Urea Nitrogen 9 mg/dL (7-17); LDH 371 U/L (313-618); Uric Acid 5.2 mg/dL (3.7-7.4)
[2018-07-25 19:21] LABS: Appearance,Urine Clear (Clear); Bacteria,Urine Rare /hpf; Bilirubin,Urine Negative (Negative); Blood,Urine Negative (Negative); Color,Urine Light Yellow; Glucose,Urine (UA) Negative (Negative); Ketones,Urine Negative (Negative); Leukocyte Esterase,Urine Moderate (Negative); Mucus,Urine Rare /hpf; Nitrite,Urine Negative (Negative); Protein,Urine Negative (Negative); RBC,Urine <1 /hpf (0-5); Specific Gravity,Urine 1.009 (1.001-1.035); Squamous Epithelial Cell,Urine 1 /hpf (0-4); Urobilinogen,Urine <2.0 mg/dL (<2.0); WBC,Urine <1 /hpf (0-5)
[2018-07-25 20:47] VITALS: BP 119/78; PULSE 85; RESP 16; TEMP 97.9
--- NOTE | 2018-07-26 03:19 | P.MSEPDOC ---
Presenting Problems - Arrival Data Date of Arrival on Unit: 07/25/18 Time of Arrival on Unit: 17:57 Mode of Transport: Ambulatory - Complaint OB-Reason for Admission/Chief Complaint: Observation/Evaluation Medical History - Information : 10 Para: 3 Term: 3 : 0 Abortions: Spontaneous or Elective: 6 Number of Living Children: 3 - Gestational Age Gestational Age by DANE (wks/days): 38 Weeks and 6 Days - History Complications: Prior Sexually Transmitted Diseases: HSV Review of Systems - Review of Systems Constitutional: No problems Breast: No problems ENT: No problems Cardiovascular: No problems Respiratory: No problems Gastrointestinal: No problems Genitourinary: No problems Musculoskeletal: No problems Neurological: No problems Skin: No problems Vital Signs - Temperature Temperature: 97.9 F Temperature Source: Oral - Pulse Right Standing Brachial Pulse Rate: 85 Pulse Assessment Method: Automatic Cuff - Respirations Respiratory Rate: 16 Oxygen Delivery Method: Room Air - Blood Pressure Right Arm Sitting Blood Pressure: 119/78 Blood Pressure Mean: 91 Blood Pressure Source: Automatic Cuff Medical Screen Scoring (Pre) - Cervical Exam Dilation: Exam Deferred Effacement: Exam Deferred Membranes: Intact - Uterine Contractions Frequency: > 5 minutes apart = 1 Duration: > 40 seconds = 2 Intensity: N/A - Maternal Vital Signs Maternal Temperature: N/A Maternal Blood Pressure: N/A Signs of Preeclampsia: N/A Maternal Respirations: N/A - Pain Assessment Pain Location and Character: Head Pain Scale Used: Numeric (1 - 10) Pain Intensity: 7 Pain Description: Aching Pain Frequency: Constant Pain Behavior: Vocalization - Assessment Heart Rate - NICHD Category: Category I (Normal) = 0 NST: Reactive Position: N/A - Total Score Total Score (Pre): 3 - Level of Risk Level of Risk: Low (0-5) Physician Notification (Pre) - Physician Notified Physician Notified Date: 07/25/18 Physician Notified Time: 19:57 Physician/Practitioner Notifed:: DR CELY [place] Order Received: Yes Medical Screen Scoring (Post) - Cervical Exam Dilation: Exam Deferred Effacement: Exam Deferred Membranes: Intact - Uterine Contractions Frequency: > 5 minutes apart = 1 Duration: > 40 seconds = 2 - Maternal Vital Signs Maternal Temperature: N/A Maternal Blood Pressure: N/A Signs of Preeclampsia: N/A Maternal Respirations: N/A - Maternal Trauma Maternal Trauma: N/A - Assessment Heart Rate: 135 Heart Rate - NICHD Category: Category I (Normal) = 0 NST: Reactive - Total Score Total Score (Post): 3 - Post Treatment Level of Risk Post Treatment Level of Risk: Low (0-5) Physician Notification (Post) - Physician Notified Physician Notified Date: 07/25/18 Physician Notified Time: 19:57 Physician/Practitioner Notified:: CELY New Order Received: Yes Disposition - Disposition OB Disposition: Discharge to home, Written follow up instructions reviewed Discharge Date: 07/25/18 Discharge Time: 20:00 I agree with the RN Medical Screening Exam: Yes Risk & Benefit of care provided described in d/c instruction: Yes Diagnosis: HEADACHE
== END 2018-07-25 20:00 | disposition home or self-care (01) ==
LOC: FBPOP 17:57
PROVIDERS: ATTEND Obstetrics & Gynecology
DX: O99.89 Other specified diseases and conditions complicating pregnancy, childbirth and the puerperium (principal); R51 Headache; Z3A.38 38 weeks gestation of pregnancy
CPT/HCPCS: 59025; 82570; 84156; 82565; 83615; 84450; 84460; 84520; 84550; 85025; 81001; G0463; 99213

== ENCOUNTER 2018-07-29 01:52 | Inpatient (IN) | payer OTHER ==
[2018-07-29] MEDS ORDERED: OXYTOCIN 10 UNIT/ML 1 ML VIAL IM PRN (01:59)
[2018-07-29] MEDS ORDERED: LIDOCAINE 0.5% (PF) 5 MG/ML (50 ML SDV) SQ PRN (01:59)
[2018-07-29] MEDS ORDERED: OXYTOCIN 30 UNITS/500 ML NS 30 UNIT in SALINE 1 500ML.BAG IV SCH (01:59)
[2018-07-29] MEDS ORDERED: LACTATED RINGERS 1,000 ML IV SCH (01:59)
[2018-07-29] MEDS ORDERED: CARBOPROST TROMETHAMINE 250 MCG/ML 1 ML AMP IM PRN (01:59)
[2018-07-29] MEDS ORDERED: AMPICILLIN 2,000 MG in SODIUM CHLORIDE 0.9% 100 ML IVPB STA (01:59)
[2018-07-29] MEDS ORDERED: METHYLERGONOVINE 0.2 MG/ML 1 ML AMP IM PRN (01:59)
[2018-07-29] MEDS ORDERED: TERBUTALINE 1 MG/ML VIAL SQ PRN (01:59)
[2018-07-29 02:23] LABS: Basophils % (A) 0 %; Eosinophils # (A) 0.1 k/uL (0-0.7); Eosinophils % (A) 1 %; HCT 31.4 % (34.0-46.0); HGB 10.3 gm/dL (11.4-16.0); Lymphocytes % (A) 25 %; MCH 32.5 pg (25.0-35.0); MCHC 32.8 g/dL (31.0-37.0); MCV 99.3 fL (80.0-100.0); Mean Platelet Volume 7.3; Monocytes # (A) 0.4 k/uL (0-1.0); Monocytes % (A) 5 %; Neutrophils # (A) 5.4 k/uL (1.3-7.7); Neutrophils % (A) 68 %; Platelet Count 196 k/uL (150-450); RBC 3.16 m/uL (3.80-5.40); RDW 13.4 % (11.5-15.5); WBC 7.9 k/uL (3.8-10.6)
[2018-07-29] MEDS: AMPICILLIN 1,000 MG in SODIUM CHLORIDE 0.9% 50 ML IVPB SCH ×2 (02:24→09:26)
[2018-07-29 02:50] VITALS: RESP 16; BMI 32.7
[2018-07-29] MEDS ORDERED: HYDROcodone/APAP 7.5-325MG 1 EACH TAB PO PRN (06:41)
[2018-07-29] MEDS ORDERED: diphenhydrAMINE 50 MG/ML 1 ML VIAL IVP PRN ×2 (06:41)
[2018-07-29] MEDS ORDERED: LANOLIN CREAM 5 GM TUBE TOPICAL PRN (06:41)
[2018-07-29] MEDS ORDERED: BENZOCAINE/MENTHOL SPRAY 1 GM/SPRAY AEROSOL TOPICAL PRN (06:41)
[2018-07-29] MEDS ORDERED: diphenhydrAMINE 50 MG CAP PO PRN (06:41)
[2018-07-29] MEDS ORDERED: HYDROCORTISONE 2.5% RECTAL CREAM 30 GM TUBE RECTAL PRN (06:41)
[2018-07-29] MEDS ORDERED: ZOLPIDEM 5 MG TAB PO PRN (06:41)
[2018-07-29] MEDS ORDERED: WITCH HAZEL 1 EACH MED..PAD TOPICAL PRN (06:41)
[2018-07-29] MEDS ORDERED: diphenhydrAMINE 25 MG CAP PO PRN (06:41)
[2018-07-29] MEDS ORDERED: ACETAMINOPHEN TAB 325 MG TAB PO PRN (06:41)
[2018-07-29] MEDS ORDERED: SIMETHICONE 80 MG CHEWABLE PO PRN (06:41)
[2018-07-29] MEDS ORDERED: OXYTOCIN 20 UNITS/1000 ML NS 1,000 ML IV SCH (06:45)
--- NOTE | 2018-07-29 06:55 | P.HPOB ---
History of Present Illness H&P Date: 07/29/18 Chief Complaint: Intrauterine at term: Active labor: Previous section Patient is a 28-year-old G10 and p3 at 39 weeks gestation arrives in active labor. Making cervical change. Spontaneous rupture membranes did occur. course was generally unremarkable and consent for was obtained with Dr. Quintanilla. She was aware of risks and benefits of . She did have a with her seventh child there is also some evidence that she had a molar with her into and spontaneous with her 9 there On physical exam vital signs are stable and afebrile. Heart regular, lungs clear, extremities are without pain. Abdomen soft and nontender. Gravid uterus is noted. Category 1 tracing is noted. Past Medical History Past Medical History: No Reported History Additional Past Medical History / Comment(s): CURRENTLY HAVING SOME CRAMPING, NO SPOTTING CURRENTLY, BUT DID HAVE SOME A WEEK AGO History of Any Multi-Drug Resistant Organisms: None Reported Past Surgical History: Section, Ear Surgery Additional Past Surgical History / Comment(s): D&C X2 Past Anesthesia/Blood Transfusion Reactions: No Reported Reaction Past Psychological History: No Psychological Hx Reported Smoking Status: Former smoker Past Alcohol Use History: None Reported Additional Past Alcohol Use History / Comment(s): QUIT A FEW MONTHS AGO, SMOKED COUPLE CIGARETTES OCCASIONALLY FROM AGE 13 Past Drug Use History: None Reported - Past Family History Mother Family Medical History: No Reported History Medications and Allergies Home Medications Medication Instructions Recorded Confirmed Type Acyclovir [Zovirax] 1 tab PO TID 07/25/18 07/29/18 History Pnv No.95/Ferrous Fum/Folic AC 1 tab PO DAILY 07/25/18 07/25/18 History [ Multivitamin Tablet] Allergies Allergy/AdvReac Type Severity Reaction Status Date / Time No Known Allergies Allergy Verified 07/29/18 01:59 Exam Osteopathic Statement: *. No significant issues noted on an osteopathic structural exam other than those noted in the History and Physical/Consult. Vital Signs Temp Pulse Resp BP Pulse Ox 07/29/18 01:57 97.5 F L 84 16 119/79 100 Intake and Output 07/28/18 07/28/18 07/29/18 14:59 22:59 06:59 Other: # Voids 1 Weight 86.5 kg - OBG Physical Exam Breast: both: normal (no masses) Abdomen: bowel sounds normal, no diffuse tenderness, no bruit present, no guarding noted, no hepatomegaly, no splenomegaly, no mass Vulva: both: normal Vagina: normal moisture, no discharge Cervix: no lesion, no discharge Uterus: normal size, normal contour Adnexa: both: normal Anus/Rectum: normal perianal skin, no rectal mass, no hemorrhoids, heme negative Results Result Diagrams: 07/29/18 02:15 Abnormal Lab Results - Last 24 Hours (Table) 07/29/18 Range/Units 02:15 RBC 3.16 L (3.80-5.40) m/uL Hgb 10.3 L (11.4-16.0) gm/dL Hct 31.4 L (34.0-46.0) %
--- NOTE | 2018-07-29 06:56 | P.PROBDLV ---
Vaginal Delivery Note - . Vaginal Delivery Note: Patient progressed complete and pushing with spontaneous vaginal delivery of a viable female over a third-degree perineal laceration. Baby was delivered from straight occiput posterior position. Once baby's head was delivered a nuchal cord 1 was noted and easily reduced. Shoulders then delivered gentle sideways traction followed by the remainder the baby. Mouth nares were then bulb suctioned and baby was placed on mother's abdomen where the umbilical cord was allowed to pulsate for 30 seconds prior to clamping and cutting. Once this was accomplished nursery personnel was present to assume care. Placenta was then delivered intact Pitocin was added to the IV. Third- degree perineal laceration was then repaired with 3-0 Vicryl following 1% Xylocaine for analgesia. This was done stick normal fashion. Rectal exam was done to verify no rectal involvement. scores are 9 and 9 at one and 5 minutes Bishop. Weight is pending at this time. Both mother and baby however appear stable.
[2018-07-29] MEDS: IBUPROFEN 600 MG TAB PO PRN ×2 (07:29→16:33)
[2018-07-29] MEDS: SENNOSIDES-DOCUSATE SODIUM 1 EACH TAB PO SCH ×2 (07:30→20:08)
[2018-07-30] MEDS: IBUPROFEN 600 MG TAB PO PRN (00:08)
--- NOTE | 2018-07-30 06:27 | P.PNOBGVD ---
Subjective - Subjective Patient reports: Reports appetite normal, Reports voiding normally, Reports pain well controlled, Reports ambulating normally [place]: doing well Objective - Latest Vital Signs Latest vital signs: Vital Signs Temp Pulse Resp BP 07/30/18 00:00 98.4 F 71 16 104/57 07/29/18 20:00 97.9 F 102 H 16 117/80 07/29/18 16:00 98.4 F 84 16 128/76 07/29/18 11:42 97.9 F 80 16 118/69 07/29/18 08:40 97.8 F 94 16 117/58 07/29/18 08:10 103 H 16 114/68 07/29/18 07:40 108 H 16 115/67 07/29/18 07:25 109 H 16 122/71 07/29/18 07:10 92 16 122/69 07/29/18 06:55 85 16 116/58 07/29/18 06:40 98.7 F 97 16 112/53 Intake and Output 07/29/18 07/29/18 07/30/18 14:59 22:59 06:59 Intake Total 10.333 Balance 10.333 Intake: Intake, IV Titration 10.333 Amount Oxytocin 20 Units/1000 ml 10.333 Ns 1,000 ml @ Per Protocol IV .Q0M [facility] Rx#: [id number] Other: # Voids 1 1 - Exam Lungs: bilateral: normal Chest: Normal S1, Normal S2 Extremities: Present: normal Abdomen: Present: normal appearance, soft Uterus: Present: normal, firm Assessment and Plan Assessment: day #1. Patient is resting without complaints and wishes to go home. Vital signs are stable she is afebrile. Uterus is firm nontender she is having normal lochia. My impression is a normal course. Plan is to continue routine care discharge home later today. (1) , delivered Current Visit: Yes Status: Acute Code(s): O34.219 - MATERNAL CARE FOR UNSP TYPE SCAR FROM PREVIOUS DEL SNOMED Code(s): 896961396
--- NOTE | 2018-07-30 06:31 | P.DS ---
Providers Date of admission: 07/29/18 01:52 Expected date of discharge: 07/30/18 Attending physician: David Quintanilla Primary care physician: Javon Carnes - Discharge Diagnosis(es) (1) , delivered Current Visit: Yes Status: Acute Hospital Course: Please see dictated H&P for intimate details of this patient's admission. Brief summary this pleasant 28-year-old 10 para 3 female 39-1/2 weeks gestation admitted to labor and delivery in active labor. Patient previous section with her third baby for active HSV outbreak. Patient requested this . Patient goes on to have a vaginal delivery after section for viable female . Please see dictated delivery note. day 1 patient's felt be stable for discharge home follow up with me in 6 weeks. Procedures: Normal vaginal delivery/ Patient Condition at Discharge: Good Plan - Discharge Summary New Discharge Prescriptions: New Ibuprofen [Motrin] 600 mg PO Q6HR PRN #40 tab PRN Reason: Mild Pain Or Fever >= 100.5 No Action Acyclovir [Zovirax] 1 tab PO TID Pnv No.95/Ferrous Fum/Folic AC [ Multivitamin Tablet] 1 tab PO DAILY Discharge Medication List Acyclovir [Zovirax] 1 tab PO TID 07/25/18 [History] Pnv No.95/Ferrous Fum/Folic AC [ Multivitamin Tablet] 1 tab PO DAILY [History] Ibuprofen [Motrin] 600 mg PO Q6HR PRN #40 tab 07/30/18 [Rx] Follow up Appointment(s)/Referral(s): Davdi Quintanilla MD [STAFF PHYSICIAN] - 09/09/18 10:45 am Patient Instructions/Handouts: Vaginal Delivery (DC) Discharge Disposition: HOME SELF-CARE
[2018-07-30 08:18] VITALS: BP 100/60; PULSE 76; TEMP 98.6
[2018-07-30] MEDS: SENNOSIDES-DOCUSATE SODIUM 1 EACH TAB PO SCH (10:45)
== END 2018-07-30 12:13 | disposition home or self-care (01) | DRG 768 ==
LOC: 4FBP 01:52
PROVIDERS: ADMIT Obstetrics & Gynecology; ATTEND Obstetrics & Gynecology
PROC: 10E0XZZ Delivery of Products of Conception, External Approach (ICD-10-PCS; principal; 2018-07-29)
PROC: 0DQR0ZZ Repair Anal Sphincter, Open Approach (ICD-10-PCS; principal; 2018-07-29)
DX: O34.219 Maternal care for unspecified type scar from previous cesarean delivery (principal); Z37.0 Single live birth; O70.20 Third degree perineal laceration during delivery, unspecified; O98.32 Other infections with a predominantly sexual mode of transmission complicating childbirth; O69.81X0 Labor and delivery complicated by cord around neck, without compression, not applicable or unspecified; Z3A.39 39 weeks gestation of pregnancy; Z87.891 Personal history of nicotine dependence; A60.09 Herpesviral infection of other urogenital tract
CPT/HCPCS: 85025; 86850; 86900; 86901

== ENCOUNTER → 2023-08-31 | Outpatient (CLI) | payer BC, OTHER ==
--- NOTE | 2023-09-06 12:09 | CT ---
EXAMINATION TYPE: CT abdomen pelvis wo/w con CT DLP: mGycm, Automated exposure control for dose reduction was used. DATE OF EXAM: 08/31/2023 8:38 AM COMPARISON: CT abdomen pelvis most recent from CLINICAL INDICATION:Female, 33 years old with history of N26.9 KIDNEY LESION; on recent ultrasound pe rformed elsewhere. TECHNIQUE: Axial CT abdomen pelvis wo/w con;Sagittal and coronal reformats were created on a [employer] workstation. Contrast used: Noncontrast study is performed followed by 100 mL of Isovue 300 with IV Contrast, (n one if empty) Oral contrast used: (none if empty) FINDINGS: LOWER CHEST: Unremarkable ABDOMEN LIVER: Slightly prominent size with length of 18 cm GALLBLADDER AND BILE DUCTS: Unremarkable. PANCREAS: Unremarkable. SPLEEN: Upper limits normal in size ADRENAL GLANDS: Questionable presence of small left adrenal adenoma versus partial volume averaging. Unlikely to represent significant finding. Unremarkable otherwise.. KIDNEYS AND URETERS: No evidence of hydronephrosis or renal calculus. The ureters are unremarkable. PELVIS BLADDER: Unremarkable REPRODUCTIVE: Unremarkable. ABDOMEN & PELVIS STOMACH AND BOWEL: Stomach and duodenum are unremarkable. No evidence of bowel obstruction. PERITONEUM/RETROPERITONEUM: No evidence of pneumoperitoneum or free fluid. VASCULATURE: No evidence of aortic aneurysm. MUSCULOSKELETAL: No acute osseous abnormalities LYMPH NODES: No gross evidence for lymphadenopathy. SOFT TISSUE/ABDOMINAL WALL: Unremarkable IMPRESSION: 1. No solid or cystic kidney lesions identified. Kidneys appear normal. Recommendation: It could be helpful to secure the previous ultrasound and correlate to studies directly on the same workstation.
== END | disposition home or self-care (01) ==
LOC: RADCTMAIN 08:04
PROVIDERS: ATTEND Student in an Organized Health Care Education/Training Program
DX: N28.9 Disorder of kidney and ureter, unspecified (principal)
CPT/HCPCS: 74178; Q9967

== ENCOUNTER → 2024-01-31 | Outpatient (CLI) | payer OTHER ==
[2024-01-31 17:04] LABS: Basophils # (A) 0.01 X 10*3/uL (0.00-0.10); Basophils % (A) 0.1 %; Eosinophils # (A) 0.06 X 10*3/uL (0.04-0.35); Eosinophils % (A) 0.9 %; HCT 34.4 % (37.2-46.3); HGB 12.3 g/dL (12.0-15.0); Lymphocytes # (A) 2.17 X 10*3/uL (0.90-5.00); Lymphocytes % (A) 32.5 %; MCH 35.4 pg (27.0-32.0); MCHC 35.8 g/dL (32.0-37.0); MCV 99.1 FL (80.0-97.0); Mean Platelet Volume 9.8 FL (9.5-12.2); Monocytes # (A) 0.48 X 10*3/uL (0.20-1.00); Monocytes % (A) 7.2 %; NRBC Per 100 WBC 0 X 10*3/uL (0.00-0.01); Neutrophils # (A) 3.93 X 10*3/uL (1.80-7.70); Platelet Count 193 X 10*3/uL (140-440); RBC 3.47 X 10*6/uL (4.10-5.20); RDW 11.9 % (11.5-14.5); WBC 6.67 X 10*3/uL (4.50-10.00)
== END | disposition home or self-care (01) ==
LOC: LABPAT 09:35
PROVIDERS: ATTEND Obstetrics & Gynecology Obstetrics
DX: Z01.812 Encounter for preprocedural laboratory examination (principal)
CPT/HCPCS: 36415; 85025; 86850; 86900; 86901

== ENCOUNTER 2024-02-01 10:24 | Day surgery (SDC) | payer OTHER ==
[2024-01-31 10:58] VITALS: BMI 24.7
[~2024-02-01 10:24] MED LIST changes: -DEXAMETHASONE SOD PHOSPHATE 10 MG/ML 1 ML VIAL IV ONE; -HYDROmorphone 1 MG/ML 1 ML SYRINGE IVP PRN; -LACTATED RINGERS 1,000 ML IV SCH; -MIDAZOLAM 2 MG/2 ML VIAL IV PRN; -ONDANSETRON 4 MG/2 ML VIAL IVP ONE; -SCOPOLAMINE 1.5MG/72HR PATCH TRANSDERM ONE
[2024-02-01] MEDS ORDERED: HYDROmorphone 0.5 MG/0.5 ML SYRINGE IVP PRN (10:37)
[2024-02-01] MEDS ORDERED: MIDAZOLAM 2 MG/2 ML VIAL IV PRN (10:37)
[2024-02-01] MEDS: IV FLUID CONTINUATION 1,000 ML IV ONE (10:38)
[2024-02-01] MEDS: ONDANSETRON 4 MG/2 ML VIAL IVP ONE (10:55)
[2024-02-01] MEDS: DEXAMETHASONE SOD PHOSPHATE 4 MG/ML 1 ML VIAL IV ONE (10:55)
[2024-02-01] MEDS: SCOPOLAMINE 1 MG/72 HR PATCH TRANSDERM ONE (10:55)
[2024-02-01] MEDS: LACTATED RINGERS 1,000 ML IV SCH (10:56)
[2024-02-01] MEDS ORDERED: KETOROLAC 15 MG/ML 1 ML VIAL ONE (11:25)
[2024-02-01] MEDS ORDERED: fentaNYL (PF) 50 MCG/ML 2 ML AMP ONE (11:25)
[2024-02-01] MEDS ORDERED: METHYLERGONOVINE 0.2 MG/ML 1 ML AMP ONE (11:25)
[2024-02-01] MEDS ORDERED: LIDOCAINE 1% INJ 10MG/ML (20 ML MDV) ONE (11:25)
[2024-02-01] MEDS ORDERED: PROPOFOL 10 MG/ML 20 ML VIAL IV ONE (11:25)
[2024-02-01] MEDS ORDERED: PHENYLEPHRINE-0.9% NACL SYG 1,000 MCG/10 ML SYRINGE ONE (11:25)
[2024-02-01] MEDS ORDERED: MIDAZOLAM 2 MG/2 ML VIAL ONE (11:25)
[2024-02-01] MEDS: SILVER NITRATE APPLICATOR 1 EACH STICK..EA. TOPICAL ONE (11:53)
--- NOTE | 2024-02-01 12:05 | P.OP ---
Date of Procedure: 02/01/24 Preoperative Diagnosis: Missed AB Postoperative Diagnosis: Same Procedure(s) Performed: Suction dilation and curettage Anesthesia: MAC Surgeon: Adia Kan Estimated Blood Loss (ml): 25 IV fluids (ml): 500 Urine output (ml): 50 Pathology: other (Uterine contents) Condition: stable Disposition: PACU Indications for Procedure: Missed AB at 8 weeks. Operative Findings: Moderate amount of products of conception noted, uterine atony was appreciated that resolved with Methergine x 1 Description of Procedure: Patient was taken back to the operating suite where general anesthesia was obtained without difficulty by the anesthesia department. She was prepped and draped in the normal sterile fashion in the dorsolithotomy position. A right upper catheter was used to drain the bladder of clear yellow urine. A weighted speculum was placed in the posterior vaginal vault the antilipid the cervix was visualized and grasped with a single-tooth tenaculum. The endocervical canal was then serially dilated. An 8 curved suction curette was placed through the cervix and toward the endometrial cavity. Once the suction was noted to be activated, the suction was used to clear the uterus of a moderate amount of products of conception. Additional passes were made to ensure complete evacuation of uterine contents. A gentle curettage was performed no further products were appreciated. On bimanual exam uterus was noted to be firm. Single-tooth tenaculum was taken off of the anterior lip of the cervix and a small amount of bleeding was noted on the anterior lip of the cervix, silver nitrate was used to obtain hemostasis. All instruments were removed from the patient's vaginal vault. All counts were noted be correct x 2. Patient did tolerate procedure well and was taken the recovery awake in stable condition.
[2024-02-01 12:15] VITALS: TEMP 97
[2024-02-01 12:47] VITALS: RESP 16
[2024-02-01] MEDS: LACTATED RINGERS 1,000 ML IV ONE (13:07)
[2024-02-01 13:49] VITALS: BP 107/65; PULSE 81
== END 2024-02-01 14:09 | disposition home or self-care (01) ==
LOC: OR 10:24
PROVIDERS: ATTEND Obstetrics & Gynecology Obstetrics
DX: O02.1 Missed abortion